=== PATIENT | female | born 1990 | race Caucasian/White ===

== ENCOUNTER 2016-06-15 23:21 | Emergency (ER) | payer OTHER ==
[~2016-06-15] VITALS: Ht 152.4 cm; Wt 83.9 kg
[2016-06-15] MEDS ORDERED: LUTERA-28 TABL1 EACH PO (23:51)
--- NOTE | 2016-06-16 00:27 | ED ANKLE/FOOT INJURY COMPLAINT ---
History of Present Illness General Chief Complaint: Lower Extremity Injury Stated Complaint: FALL INJURY LEFT ANKLE Source: patient Exam Limitations: no limitations Vital Signs & Intake/Output Vital Signs & Intake/Output Vital Signs Date Time Temp Pulse Resp B/P Pulse O2 O2 Flow FiO2 Ox Delivery Rate 06/16 0055 97.8 06/16 0038 99 Room Air 06/16 0000 97.8 80 18 123/78 99 Room Air ED Intake and Output 06/16 0000 06/15 1200 Intake Total Output Total Balance Patient 185 lb Weight Allergies Coded Allergies: shellfish derived (Severe, HIVES/ THROAT CLOSURE/ SWOLLEN LIPS 06/15/16) Reconcile Medications Levonorgestrel-Ethin Estradiol (Lutera-28 Tablet) 0.1 MG-20 MCG TABLET 1 TAB PO DAILY CONTROL (Reported) Meloxicam (Mobic) 15 MG TABLET 1 TAB PO DAILY PRN PAIN/INFLAMMATION Tramadol HCl 50 MG TABLET 1-2 TAB PO Q6 PRN pain Triage Note: TRIAGE: PATIENT TO ER FROM HOME REPORTS S/P MECHANICAL SLIP AND FALL ON ICE APPROX 8:15PM, REPORTING +L ANKLE PAIN SINCE. REPORTS PAIN AROUND ENTIRE ANKLE, +SWELLING NOTED, NO OBVIOUS DEFORMITY. +CMS, DEC ROM. Triage Nurses Notes Reviewed? yes : No Patient currently breastfeeds: No HPI: Patient is a 25 year old female presents complaining of left ankle pain s/p fall approximately 4-5 hours ago. Pain worsening gradually. Pain is 8/10, worsens with movement and palpation. No alleviating factors. Patient has tried ice to the area, has not taken any medication for her symptoms. Patient denies head injury, neck pain, back pain, numbness. (ALYSSA XAVIER) Past History Travel History Traveled to [place] past 21 day No Medical History Any Pertinent Medical History? see below for history Neurological: NONE EENT: NONE Cardiovascular: NONE Respiratory: asthma Gastrointestinal: NONE Hepatic: NONE Renal: NONE Musculoskeletal: NONE Psychiatric: NONE Endocrine: NONE Blood Disorders: NONE Cancer(s): NONE INTERVENTIONAL PAIN PHYSICIAN/Reproductive: NONE Surgical History Surgical History: non-contributory Psychosocial History What is your primary language Haitian Tobacco Use: Never used Family History Hx Contributory? No (ALYSSA XAVIER) Review of Systems Review of Systems Constitutional: Reports: no symptoms. Cardiovascular: Denies: chest pain. GI: Denies: abdominal pain. Musculoskeletal: Reports: see HPI. Denies: back pain, neck pain. Skin: Reports: no symptoms. Neurological/Psychological: Denies: numbness, paresthesia. Hematologic/Endocrine: Denies: bruising, bleeding. Immunologic/Allergic: Denies: splenectomy. (ALYSSA XAVIER) Physical Exam Physical Exam General Appearance: well developed/nourished, alert, awake Head: atraumatic, normal appearance Eyes: Bilateral: normal appearance. Ears, Nose, Throat: hearing grossly normal Neck: normal inspection, supple, full range of motion Cardiovascular/Respiratory: no respiratory distress Back: normal inspection, normal range of motion Leg/Knee/Thigh Left: normal range of motion, normal inspection, NONTENDER Ankle Left: SWELLING AND TENDERNESS OVER THE LEFT LATERAL MALLEOLUS. nO TENDERNESS TO THE MEDIAL MALLEOLUS. jOINT STABLE. Foot Left: normal inspection, normal range of motion, NONTENDER Neuro/Vascular: normal motor function, normal sensation Tendon: normal tendon function (ALYSSA XAVIER) Progress Differential Diagnosis: fracture, dislocation, sprain, contusion Plan of Care: Orders Procedure Date/time Status Durable Medical Equipment 06/16 124 Active 06/16/16 012: Results of x-rays discussed with patient. Air splint placed by nursing staff. Appears stable for discharge. (ALYSSA XAVIER) Diagnostic Imaging: Viewed by Me: Radiology Read. Discussed w/RAD: Radiology Read. Radiology Impression: PATIENT: JOB PULIDO PRESENT AGE: 25 PATIENT ACCOUNT NO: [id number] : 92 LOCATION: [facility] ORDERING PHYSICIAN: ALYSSA COOK SERVICE DATE: 06/15/16 EXAM TYPE: RAD - XRY-ANKLE 3 OR MORE VIEWS L EXAMINATION: XR ANKLE, LEFT CLINICAL INFORMATION: Status post slip and fall on ice COMPARISON: None TECHNIQUE: AP, lateral, and mortise views of the left ankle. FINDINGS: Alignment is anatomic. No acute fracture is seen. Lateral soft tissue swelling is present. IMPRESSION: Lateral soft tissue swelling. No fracture identified. DICTATED BY: ERMELINDA ESQUIVEL MD DATE/TIME DICTATED:06/16/16115 FRONT OFFICE MEDICAL ASSISTANT:ALONSO DATE/TIME TRANSCRIBED:06/16/16115 CONFIDENTIAL, DO NOT COPY WITHOUT APPROPRIATE AUTHORIZATION. <Electronically signed in Other Vendor System> SIGNED BY: ERMELINDA ESQUIVEL MD 06/16/16 0122 (ALYSSA XAVIER) Departure Departure Time of Disposition: 123 Disposition: HOME OR SELF CARE Condition: Stable Clinical Impression Primary Impression: Left ankle sprain Qualifiers: Encounter type: initial encounter Involved ligament of ankle: unspecified ligament Qualified Code: S93.402A - Sprain of unspecified ligament of left ankle, initial encounter Referrals: CASSIDY BECERRA-,BROOKLYN BASURTO MD,LUIS MIGUEL CARR MD,VALERIE PATIENT HAS NO PRIMARY CARE DR (PCP/Family) JUNG HOLLINS,CARLITOS Sibley Additional Instructions: Rest, ice for 20 minutes 4-5 times a day, wear air splint for support. Follow up with Dr. Reynaga(orthopedist) or with one of the other primary care providers listed in your discharge paperwork if no improvement within 2-3 days. Return to the ER if worsening of symptoms. Departure Forms: Customer Survey General Discharge Information Prescriptions: Current Visit Scripts Meloxicam (Mobic) 1 TAB PO DAILY PRN PAIN/INFLAMMATION #10 TAB Tramadol HCl 1-2 TAB PO Q6 PRN pain #15 TAB (ALYSSA XAVIER) PA/APPLICATION CONSULTANT Co-Sign Statement Statement: ED Attending supervision documentation- [] I saw and evaluated the patient. I have also reviewed all the pertinent lab results and diagnostic results. I agree with the findings and the plan of care as documented in the PA's/APPLICATION CONSULTANT's documentation. x I have reviewed the ED Record and agree with the PA's/APPLICATION CONSULTANT's documentation. [] Additions or exceptions (if any) to the PAs/APPLICATION CONSULTANT's note and plan are summarized below: [] (YESSICA HOLLINS,SAMMY)
--- NOTE | 2016-06-16 01:22 | RADIOLOGY REPORT ---
EXAMINATION: XR ANKLE, LEFT CLINICAL INFORMATION: Status post slip and fall on ice COMPARISON: None TECHNIQUE: AP, lateral, and mortise views of the left ankle. FINDINGS: Alignment is anatomic. No acute fracture is seen. Lateral soft tissue swelling is present. IMPRESSION: Lateral soft tissue swelling. No fracture identified.
[2016-06-16] MEDS ORDERED: MOBIC15 M1 PO (01:26)
[2016-06-16] MEDS ORDERED: TRAMADOL HCL50 M1 PO (01:26)
[2016-06-16 01:50] VITALS: BP 121/66
== END 2016-06-16 01:51 ==
LOC: ERH 23:21
DX: S93.402A Sprain of unspecified ligament of left ankle, initial encounter (principal); W19.XXXA Unspecified fall, initial encounter
CPT/HCPCS: 73610-LT